=== PATIENT | male | born 1970 | race Caucasian/White ===

== ENCOUNTER 2018-08-18 05:49 | Outpatient (CLI) | payer BC, OTHER ==
[~2018-08-18] VITALS: Ht 182.9 cm; Wt 104.0 kg
[~2018-08-18 05:49] MED LIST: CLAR-19 PO; DIPH1TAB45 PO; LORA10TA2; NAPR250T34 PO; NF-ESOM40C; PRD50T PO
[2018-08-18] MEDS ORDERED: CETI1TAB61 PO (09:56)
[2018-08-18] MEDS ORDERED: MONT10TA21 PO (09:56)
[2018-08-18] MEDS ORDERED: TOPI50TA37 PO (09:56)
[2018-08-18] MEDS ORDERED: ALBU1.25 INH (09:56)
[2018-08-18] MEDS ORDERED: STEROID PACK PO (09:56)
[2018-08-18] MEDS ORDERED: RT-ALBUINH IH (09:58)
[2018-08-18 09:59] VITALS: BP 133/91
[2018-08-18 10:39] LABS: BASOPHILS % (AUTO) 0 % (0-10); EOSINOPHILS # (AUTO) 0.1 10^3/uL (0.0-0.3); EOSINOPHILS % (AUTO) 1 % (0-10); HEMATOCRIT 45 % (40-54); LYMPHOCYTES # (AUTO) 3.2 X 10^3 (1.0-4.0); LYMPHOCYTES % (AUTO) 24 % (12-44); MEAN CORPUSCULAR HEMOGLOBIN 29 PG (25-34); MEAN CORPUSCULAR HGB CONC 35 G/DL (32-36); MEAN CORPUSCULAR VOLUME 83 FL (80-99); MEAN PLATELET VOLUME 10.8 FL (7.4-10.4); MONOCYTES # (AUTO) 2.3 X 10^3 (0.0-1.0); MONOCYTES % (AUTO) 17 % (0-12); NEUTROPHILS # (AUTO) 8.1 X 10^3 (1.8-7.8); NEUTROPHILS % (AUTO) 59 % (42-75); PLATELET COUNT 231 10^3/uL (130-400); RED CELL DISTRIBUTION WIDTH 13.4 % (10.0-14.5); WHITE BLOOD COUNT 13.7 10^3/uL (4.3-11.0)
== END 2018-08-18 11:46 ==
LOC: PREOP 05:49
PROVIDERS: ATTEND Surgery
DX: Z01.812 Encounter for preprocedural laboratory examination (principal); Z11.2 Encounter for screening for other bacterial diseases; K40.90 Unilateral inguinal hernia, without obstruction or gangrene, not specified as recurrent
CPT/HCPCS: 36415; 85025; 87081

== ENCOUNTER 2018-08-20 10:58 | Day surgery (SDC) | payer BC, OTHER ==
[2018-08-20] VITALS (9 sets, daily range): BP systolic 123–142; BP diastolic 82–94
[~2018-08-20] VITALS: Ht 182.9 cm; Wt 104.0 kg
[~2018-08-20 10:58] MED LIST changes: +ALBU1.25 INH; +CETI1TAB61 PO; +MONT10TA21 PO; +RT-ALBUINH IH; +STEROID PACK PO; +TOPI50TA37 PO
[2018-08-20] MEDS ORDERED: LACTATED RINGERS 1,000 ML IV PRN ×2 (11:07)
--- OUTSIDE RECORDS SUMMARY | 2018-08-20 11:07 | XMS REPORT | Continuity of Care Document ---
Author Organization Unknown Address Unknown Allergies Active Description Code Type Severity Reaction Onset Reported/Identified Relationship to Patient Clinical Status Yes NKANo Known Allergies NKA Miscellaneous Allergy Mild N/A 01/28/2009 Yes No Known Drug Allergies [id number] Drug Allergy Unknown N/A 08/18/2018 Medications There is no data. Problems There is no data. Procedures There is no data. Results Test Result Range Other Culture - 09/27/16 15:30 PRELIM CULTURE RESULTS Abundant coag pos [id number] / ID to follow MEDIA PLATED Setup at 17:12 on 09/27/2016 Sensi - 09/27/16 15:30 FINAL CULTURE RESULTS Methicillin Resistant Staphylococcus aureus (Isolate 1) Ampicillin/Sulbactam <=8/4 Ampicillin <=2 Amoxicillin/K Clavulanate <=4/2 Ceftriaxone <=8 Clindamycin <=0.5 Cefoxitin Screen >4 Ciprofloxacin <=1 Daptomycin <=0.5 Erythromycin >4 Nitrofurantoin <=32 Gentamicin <=4 Gentamicin Synergy Screen N/R Inducible Clindamycin <=4/0.5 Levofloxacin <=1 Linezolid 2 Moxifloxacin <=0.5 Oxacillin >2 Penicillin 0.25 Rifampin <=1 Streptomycin Synergy N/R Synercid <=0.5 Trimethoprim/ Sulfamethoxazole <=0.5/9.5 Tetracycline <=4 Vancomycin 1 Methicillin resistant Staphylococcus aureus (MRSA) screening culture - 08/18/18 10:20 Methicillin resistant Staphylococcus aureus (MRSA) screening culture NEG NRG Complete blood count (CBC) with automated white blood cell (WBC) differential - 08/18/18 10:25 Blood leukocytes automated count (number/volume) 13.7 10*3/uL 4.3-11.0 Blood erythrocytes automated count (number/volume) 5.44 10*6/uL 4.35-5.85 Venous blood hemoglobin measurement (mass/volume) 16.0 g/dL 13.3-17.7 Blood hematocrit (volume fraction) 45 % 40-54 Automated erythrocyte mean corpuscular volume 83 [foz_us] 80-99 Automated erythrocyte mean corpuscular hemoglobin (mass per erythrocyte) 29 pg 25-34 Automated erythrocyte mean corpuscular hemoglobin concentration measurement (mass/volume) 35 g/dL 32-36 Automated erythrocyte distribution width ratio 13.4 % 10.0- 14.5 Automated blood platelet count (count/volume) 231 10*3/uL 130-400 Automated blood platelet mean volume measurement 10.8 [foz_us] 7.4-10.4 Automated blood neutrophils/100 leukocytes 59 % 42-75 Automated blood lymphocytes/100 leukocytes 24 % 12-44 Blood monocytes/100 leukocytes 17 % 0-12 Automated blood eosinophils/100 leukocytes 1 % 0-10 Automated blood basophils/100 leukocytes 0 % 0-10 Blood neutrophils automated count (number/volume) 8.1 10*3 1.8-7.8 Blood lymphocytes automated count (number/volume) 3.2 10*3 1.0-4.0 Blood monocytes automated count (number/volume) 2.3 10*3 0.0- 1.0 Automated eosinophil count 0.1 10*3/uL 0.0-0.3 Automated blood basophil count (count/volume) 0.0 10*3/uL 0.0-0.1 Encounters ACCT No. Visit Date/Time Discharge Status Pt. Type Provider Facility Loc./Unit Complaint [id number] 08/18/2018 05:49:00 08/18/2018 11:46:00 DIS Outpatient JULIANA HARRIS MD Via [facility] PREOP RIGHT INGUINAL HERNIA [id number] 09/14/2014 09:33:00 09/14/2014 23:59:59 CLS Outpatient MANUEL SCHAFER APRN [facility] LIZ [id number] 08/04/2012 08:53:00 08/04/2012 23:59:59 CLS Outpatient [id number] 08/20/2018 12:00:00 PEN Preadmit JULIANA HARRIS MD [facility] SDC RIGHT INGUINAL HERNIA [id number] 09/14/2014 09:34:20 ACT Document Registration [id number] 09/27/2016 16:49:00 09/27/2016 23:59:00 DIS Outpatient Jasmyn Sinclair
[2018-08-20] MEDS ORDERED: ceFAZolin 2 GM/50 ML NS 50 ML IV ONE (11:15)
--- NOTE | 2018-08-20 11:48 | Progress Note-Pre Operative ---
Pre-Operative Progress Note H&P Reviewed The H&P was reviewed, patient examined and no changes noted. Date Seen by Provider: Aug 20, 2018 Time Seen by Provider: 11:00 Date H&P Reviewed: Aug 20, 2018 Time H&P Reviewed: 11:00 Pre-Operative Diagnosis: reducible right ing hernia JULIANA HARRIS MD Aug 20, 2018 11:48
[2018-08-20] MEDS ORDERED: HYDR-34 PO (11:51)
--- NOTE | 2018-08-20 11:51 | Discharge Inst-Surgical ---
D/C Lap Instructions-KIMBERLY New, Converted, or Re-Newed RX: RX on Chart Follow Up Appt in 2 weeks Activity as tolerated No driving for 24 hours No driving while on pain medications Incentive Spirometry use every 2 hours while awake Regular Diet Symptoms to Report: Fever over 101 degree F, Nausea/Vomiting Infection Signs and Symptoms to report: Increased redness, Foul odor of wound, Increased drainage Bathing instructions: May shower Operative Area Clean/Dry; Keep incision clean/dry If any problems/questions: Contact your physician or go to Emergency Room JULIANA HARRIS MD Aug 20, 2018 11:51
[2018-08-20] MEDS ORDERED: ONDANSETRON 4 MG/2 ML (SDV) Z0FRAN IVP PRN ×2 (12:00→16:15)
[2018-08-20] MEDS ORDERED: morphine INJ 10 MG/ML 1ML (SYR OR VIAL) IVP PRN ×2 (12:00)
[2018-08-20] MEDS ORDERED: CATHETER FLUSH 10 ML SYR IV PRN (12:00)
[2018-08-20] MEDS ORDERED: oxyCODONE/APAP 5/325MG (PERCOCET 5) TABLET PO PRN (12:00)
[2018-08-20] MEDS ORDERED: ACETAMINOPHEN 325 MG TABLET PO PRN (12:00)
[2018-08-20] MEDS ORDERED: ROCURONIUM 10 MG/ML 5 ML SYRINGE IV ONE (13:32)
[2018-08-20] MEDS ORDERED: MIDAZOLAM 2 MG/2 ML (VERSED) VIAL ONE (13:32)
[2018-08-20] MEDS ORDERED: ONDANSETRON 4 MG/2 ML (SDV) Z0FRAN ONE (13:32)
[2018-08-20] MEDS ORDERED: DEXAMETHASONE 10 MG/ML (DECADRON) 1 ML VIAL ONE (13:32)
[2018-08-20] MEDS ORDERED: LIDOCAINE PF 2% 5 ML (XYLOCAINE) VIAL ONE (13:32)
[2018-08-20] MEDS ORDERED: proPOfol 200 MG/20 ML (DIPRIVAN) VIAL IV ONE (13:32)
[2018-08-20] MEDS ORDERED: fentaNYL INJECTION 100 MCG/2 ML AMP ONE (13:32)
[2018-08-20] MEDS ORDERED: GLYCOPYRROLATE 0.2 MG/ML (ROBINUL) 2 ML VIAL ONE ×2 (13:41→15:45)
[2018-08-20] MEDS ORDERED: SEVOFLURANE (ULTANE) 15 ML INHAL SOLN ONE (13:42)
[2018-08-20] MEDS ORDERED: BUP/EPI 0.5% 1:200,000 (SENSORCAINE) 30 ML VIAL ONE (13:45)
[2018-08-20] MEDS ORDERED: SUCCINYLCHOLINE INJ 100 MG/5 ML SYR ONE (14:42)
[2018-08-20] MEDS ORDERED: HYDROmorphone 2 MG/ML VIAL (DILAUDID) ONE (15:26)
[2018-08-20] MEDS ORDERED: NEOSTIGMINE 1 MG/ML 5 ML SYRINGE ONE (15:45)
--- NOTE | 2018-08-20 15:58 | Progress Note-Post Operative ---
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
[2018-08-20] MEDS ORDERED: HYDROmorphone 2 MG/ML VIAL (DILAUDID) IV ONE (16:15)
--- NOTE | 2018-08-20 16:39 | Anesthesia-General Post-Op ---
General Patient Condition Mental Status/LOC: Same as Preop Cardiovascular: Satisfactory Nausea/Vomiting: Absent Respiratory: Satisfactory Pain: Controlled Complications: Absent Post Op Complications Complications None Follow Up Care/Instructions Patient Instructions None needed. Anesthesia/Patient Condition Patient Condition Patient is doing well, no complaints, stable vital signs, no apparent adverse anesthesia problems. No complications reported per nursing. D/C home per [facility] Criteria: Yes BRODY ATWOOD CRNA Aug 20, 2018 16:39
--- NOTE | 2018-08-20 20:46 | OPERATIVE REPORT ---
DATE OF SERVICE: 08/20/2018 ATTENDING PRIMARY CARE PHYSICIAN: Dr. Dumont. PREOPERATIVE DIAGNOSIS: Symptomatic reducible right inguinal hernia. POSTOPERATIVE DIAGNOSIS: Symptomatic reducible right inguinal hernia. PROCEDURE: Laparoscopic right inguinal hernia repair with mesh. SURGEON: Juliana Harris MD CO FOUNDER AND CTO: Burt Francis APRN. ANESTHESIA: General endotracheal. ESTIMATED BLOOD LOSS: Minimal. FINDINGS: Right reducible indirect inguinal hernia. There is no recurrent left inguinal hernia component. DISPOSITION: The patient tolerated the procedure well. The patient is a 48-year-old male who was referred for pain and pressure along the right inguinal region. He reported he noticed this 6 weeks ago at work. He does do heavy lifting for his job on a regular basis and states that when this does flare up and he does rest, this does improve. He reports that the pain is severe enough, it does radiate towards the testicles as well as down his leg at times. He had a left inguinal hernia with similar symptoms approximately 20 years ago. The patient was brought to the operating room, laid supine on the table. After adequate IV pain and sedative medications and general endotracheal intubation, the abdomen was prepped and draped in standard surgical fashion. A 0.5% Marcaine with epinephrine was then used to anesthetize the overlying skin in the infraumbilical rim and a transverse skin incision made using a 15 blade. A sharp towel clamp was used to retract the abdominal wall anteriorly and a Veress needle inserted with a low opening pressure of 0 mmHg. The abdomen was then insufflated to 15 mmHg pressure. The Veress needle removed and a 10 mm Xcel trocar placed followed by a 10 mm 45-degree angle laparoscope visualizing the peritoneal cavity. A 4-quadrant abdominal exploration was performed. There was no recurrent left inguinal hernia. There was a right inguinal hernia identified, which was indirect type and small. The small bowel, omentum, colon appeared normal. Under direct visualization, we then proceeded to place bilateral 5 mm ports after the skin and peritoneal lining were anesthetized using 0.5% Marcaine with epinephrine and a transverse skin incision was made using 15-blade. The patient was then placed in reverse Trendelenburg position. A wedge of mesentery was then opened starting laterally towards the conjoint tendon inguinal ligament. We then proceeded medially to Judd's ligament. We then proceeded with our inferior dissection encompassing the entire hernia sac. The cord and its contents identified and spared throughout the process. Good hemostasis was also observed. A medium size 3DMax polypropylene mesh was then placed at the 10 mm port site and tacked to Judd's ligament medially with absorbable tacker and to conjoined tendon laterally. The peritoneal lining was then placed over the mesh and a few tacks placed to keep this in place. Good hemostasis was observed. The 10 mm port site fascia and peritoneum were then closed under direct visualization using a Hugo-Keysha device and 0 Vicryl suture. The abdomen was then desufflated and remaining ports removed. All skin incisions were closed using 4-0 Monocryl running subcuticular sutures. Wounds were then cleaned and covered with Dermabond. A supportive garment was also then placed. The patient tolerated the procedure well. We will start IV and oral pain medication as well as a clear liquid diet. Once he is tolerating clears, has good pain control with oral pain medication and is ambulating well, we will discharge him home. He will be instructed to do no heavy lifting or exertion for the next six weeks due to the type of work that he does for his job. If there is increased recurrence rate and we will have him wait the entire six weeks to allow for full incorporation of the mesh and normal collagen formation and tensile strength. Job ID: [id number] DocumentID: [id number] Dictated Date: 08/20/2018 16:06:58 On Air Personality Date: 08/20/2018 20:45:36 Dictated By: JULIANA HARRIS MD MTDD
== END 2018-08-20 17:37 | disposition home or self-care (01) ==
LOC: SDC 10:58
PROVIDERS: ATTEND Surgery
DX: K40.90 Unilateral inguinal hernia, without obstruction or gangrene, not specified as recurrent (principal); J45.909 Unspecified asthma, uncomplicated; F17.210 Nicotine dependence, cigarettes, uncomplicated; F17.220 Nicotine dependence, chewing tobacco, uncomplicated; Z79.899 Other long term (current) drug therapy
CPT/HCPCS: 94664

== ENCOUNTER 2019-08-15 11:57 | Emergency (ER) | payer SELFPAY ==
[~2019-08-15] VITALS: Ht 182 cm; Wt 118.0 kg
[~2019-08-15 11:57] MED LIST changes: +HYDR-34 PO
--- OUTSIDE RECORDS SUMMARY | 2019-08-15 12:12 | XMS REPORT | Continuity of Care Document ---
Author Organization Unknown Address Unknown Phone Unavailable Allergies Active Description Code Type Severity Reaction Onset Reported/Identified Relationship to Patient Clinical Status Yes NO KNOWN DRUG ALLERGIES UNKNOWN UNKNOWN Yes NKANo Known Allergies NKA Miscellaneous Allergy Mild N/A 01/28/2009 Yes No Known Drug Allergies [id number] Drug Allergy Unknown N/A 08/18/2018 Medications There is no data. Problems Date Dx Coded Attending Type Code Diagnosis Diagnosed By 02/05/2017 W 278.00 OBE SITY, UNSPECIFIED 02/05/2017 W 682.6 CELL ULITIS AND ABSCESS OF LEG, EXCEPT FOOT 02/05/2017 W E66.9 OBES ITY, UNSPECIFIED 02/05/2017 W L02.419 CU TANEOUS ABSCESS OF LIMB, UNSPECIFIED 02/05/2017 A V02.54 CAR RIER OR SUSPECTED CARRIER OF METHICILLIN RESISTANT STAPHYLOCOCCUS AUREUS 02/05/2017 A Z22.322 CA RRIER OR SUSPECTED CARRIER OF METHICILLIN RESISTANT STAPHYLOCOCCUS AUREUS 05/09/2017 W 477.8 LETY RGIC RHINITIS DUE TO OTHER ALLERGEN 05/09/2017 W J30.2 OTHE R SEASONAL ALLERGIC RHINITIS 04/06/2018 W 461.9 ACUT E SINUSITIS, UNSPECIFIED 04/06/2018 W 477.8 LETY RGIC RHINITIS DUE TO OTHER ALLERGEN 04/06/2018 W J01.90 ACU TE SINUSITIS, UNSPECIFIED 04/06/2018 W J30.2 OTHE R SEASONAL ALLERGIC RHINITIS 08/12/2018 W 112.3 CAND IDIASIS OF SKIN AND NAILS 08/12/2018 W 278.00 OBE SITY, UNSPECIFIED 08/12/2018 W 477 ALLERG IC RHINITIS 08/12/2018 W 550.90 UNI LATERAL OR UNSPECIFIED INGUINAL HERNIA, WITHOUT MENTION OF OBSTRUCTION OR GANGRENE (NOT SPECIFIED RECURRENT) 08/12/2018 W B37.2 CAND IDIASIS OF SKIN AND NAIL 08/12/2018 W E66.9 OBES ITY, UNSPECIFIED 08/12/2018 W J30.9 LETY RGIC RHINITIS, UNSPECIFIED 08/12/2018 W K40.90 UNI LATERAL INGUINAL HERNIA, WITHOUT OBSTRUCTION OR GANGRENE, NOT SPECIFIED RECURRENT 08/18/2018 JULIANA HARRIS MD Ot K40.90 UNIL INGUINAL HERNIA, W/O OBST OR GANGR, 08/18/2018 JULIANA HARRIS MD Ot Z01.81 2 ENCOUNTER FOR PREPROCEDURAL LABORATORY E 08/18/2018 JULIANA HARRIS MD Ot Z11.2 ENCOUNTER FOR SCREENING FOR OTHER BACTER 08/20/2018 JULIANA HARRIS MD Ot F17.21 0 NICOTINE DEPENDENCE, CIGARETTES, UNCOMPL 08/20/2018 JULIANA HARRIS MD Ot F17.22 0 NICOTINE DEPENDENCE, CHEWING TOBACCO, UN 08/20/2018 JULIANA HARRIS MD Ot J45.90 9 UNSPECIFIED ASTHMA, UNCOMPLICATED 08/20/2018 JULIANA HARRIS MD Ot K40.90 UNIL INGUINAL HERNIA, W/O OBST OR GANGR, 08/20/2018 JULIANA HARRIS MD Ot Z79.89 9 OTHER [facility] (CURRENT) DRUG THERAPY 08/20/2018 JULIANA HARRIS MD Ot K40.90 UNIL INGUINAL HERNIA, W/O OBST OR GANGR, 08/20/2018 JULIANA HARRIS MD Ot Z01.81 2 ENCOUNTER FOR PREPROCEDURAL LABORATORY E 08/20/2018 JULIANA HARRIS MD Ot Z11.2 ENCOUNTER FOR SCREENING FOR OTHER BACTER 08/20/2018 JULIANA HARRIS MD Ot K40.90 UNIL INGUINAL HERNIA, W/O OBST OR GANGR, 08/20/2018 JULIANA HARRIS MD Ot Z01.81 2 ENCOUNTER FOR PREPROCEDURAL LABORATORY E 08/20/2018 JULIANA HARRIS MD Ot Z11.2 ENCOUNTER FOR SCREENING FOR OTHER BACTER 08/26/2018 JULIANA HARRIS MD Ot F17.21 0 NICOTINE DEPENDENCE, CIGARETTES, UNCOMPL 08/26/2018 JULIANA HARRIS MD Ot F17.22 0 NICOTINE DEPENDENCE, CHEWING TOBACCO, UN 08/26/2018 JULIANA HARRIS MD Ot J45.90 9 UNSPECIFIED ASTHMA, UNCOMPLICATED 08/26/2018 JULIANA HARRIS MD Ot K40.90 UNIL INGUINAL HERNIA, W/O OBST OR GANGR, 08/26/2018 JULIANA HARRIS MD Ot Z79.89 9 OTHER [facility] (CURRENT) DRUG THERAPY 11/27/2018 Jasmyn Sinclair W 719.41 PAIN IN JOINT INVOLVING SHOULDER REGION 11/27/2018 Jasmyn Sinclair M25.512 PAIN IN LEFT SHOULDER 11/27/2018 Jasmyn Sinclair 719.41 PAIN IN JOINT INVOLVING SHOULDER REGION 11/27/2018 Jasmyn Sinclair M25.512 PAIN IN LEFT SHOULDER Procedures There is no data. Results Test Result Range Other Culture - 09/27/16 15:30 PRELIM CULTURE RESULTS Abundant coag pos sta [id number] / ID to follow MEDIA PLATED Setup [...] Tetracycline <=4 Vancomycin 1 Methicillin resistant Staphylococcus aur eus (MRSA) screening culture - 08/18/18 10:20 Methicillin resistant Staphylococcus aureus (MRSA) scr eening culture NEG NRG Complete blood count (CBC) with automate d white blood cell (WBC) differential - 08/18/18 10:25 Blood leukocytes automated count (number/volume) 13.7 10*3/uL 4.3-11.0 Blood erythrocytes automated count (number/volume) 5.44 10*6/uL 4.35-5.85 Venous blood hemoglobin measurement (mass/volume) 16.0 g/dL 13.3-17.7 Blood hematocrit (volume fraction) 45 % 40-54 Automated erythrocyte mean corpuscular volume 83 [ foz_us] 80-99 Automated erythrocyte mean corpuscular h emoglobin (mass per erythrocyte) 29 pg 25-34 Automated erythrocyte mean corpuscular h emoglobin concentration measurement (mass/volume) 35 g/dL 32-36 Automated erythrocyte distribution width ratio 13. 4 % 10.0- 14.5 Automated blood platelet count [...] 10*3 1.0-4.0 Blood monocytes automated count (number/volume) 2. 3 10*3 0.0-1.0 Automated eosinophil count 0.1 10*3/uL 0 .0-0.3 Automated blood basophil count (count/volume) 0.0 10*3/uL 0.0-0.1 Sed Rate - 11/27/18 11:52 Sed Rate 2 mm/hr 0-9 CYNTHIA w/Reflex - 11/27/18 11:52 CYNTHIA DIRECT NEGATIVE NEGATIVE CYNTHIA w/Reflex - 11/27/18 11:52 CYNTHIA Direct Negative Negative Encounters ACCT No. Visit Date/Time Discharge Status Pt. Type Provider Facility Loc./Unit Complaint [id number] 04/02/2019 14:40:00 04/02/2019 23:59 :00 DIS Outpatient Jasmyn Sinclair [id number] 11/27/2018 11:32:00 11/27/2018 23:59: 00 DIS Outpatient BUBBA MORRIS [id number] 11/27/2018 10:00:00 11/27/2018 23:59: 00 DIS Outpatient Jasmyn Sinclair [id number] 09/27/2016 16:49:00 09/27/2016 23:59: 00 DIS Outpatient Jasmyn Sinclair [id number] 08/12/2018 08:20:00 Document Registration [id number] 04/06/2018 14:00:00 Document Registration [id number] 05/09/2017 08:23:00 Document Registration [id number] 02/05/2017 11:00:00 Document Registration [id number] 11/30/2018 12:09:00 Document Registration [id number] 08/20/2018 10:58:00 019 17:37:00 DIS Outpatient JULIANA HARRIS MD [facility] RIGHT INGUINAL HERNIA [id number] 08/18/2018 05:49:00 11:46:00 DIS Outpatient JULIANA HARRIS MD [facility] PREOP RIGHT INGUINAL HERNIA [id number] 09/14/2014 09:33:00 015 23:59:59 CLS Outpatient MANUEL SCHAFER APRN [facility] [id number] 08/04/2012 08:53:00 013 23:59:59 CLS Outpatient
[2019-08-15] MEDS ORDERED: IBUPROFEN 800 MG (MOTRIN) TAB PO STA (12:32)
[2019-08-15] MEDS ORDERED: CYCLOBENZAPRINE 10 MG (FLEXERIL) TAB PO STA (12:32)
--- NOTE | 2019-08-15 12:40 | ED Upper Extremity ---
General Chief Complaint: Upper Extremity Stated Complaint: L SHOULDER PAIN Nursing Triage Note: PT CO OF L SHOULDER PAIN, DENIES INJURY, HOLDS OVER HEAD TO KEEP FROM HURTING Nursing Sepsis Screen: No Definite Risk History of Present Illness Date Seen by Provider: Aug 15, 2019 Time Seen by Provider: 12:25 Initial Comments 49-year-old male presents for left shoulder pain. He had pain that began this morning while in the shower. 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 He denies a specific injury to his shoulder. He tried Tylenol with no resolution in symptoms. He has been seen previously by orthopedics for left shoulder and neck issues but was unable to obtain an MRI secondary to claustrophobia from his asthma. He denies any left chest pain. His left shoulder feels best when keeping it elevated and his hand resting on his head. Onset: this morning Pain/Injury Location: left shoulder Method of Injury: unknown Modifying Factors: Improves With Rest Allergies and Home Medications Allergies Coded Allergies: No Known Drug Allergies (Unverified , 08/18/18) Home Medications Cetirizine HCl/Pseudoephedrine 1 Each Tab.er.12h, 1 EACH PO BIDPC, (Reported) Cyclobenzaprine HCl 10 Mg Tablet, 10 MG PO Q8H PRN for SPASMS Prescribed by: JYOTSNA MAGALLON on 08/15/19 1302 Montelukast Sodium 10 Mg Tablet, 10 MG PO DAILY, (Reported) Patient Home Medication List Home Medication List Reviewed: Yes Review of Systems Constitutional: no symptoms reported, see HPI Musculoskeletal: see HPI, joint pain (left shoulder and trapezius muscle) All Other Systems Reviewed Negative Unless Noted: Yes Past Mqwlovz-Jpldoo-Lqimoi Hx Past Med/Social Hx: Reviewed Nursing Past Med/Soc Hx Patient Social History Alcohol Use: Denies Use Recreational Drug Use: No Smoking Status: Never a Smoker Type Used: Smokeless Tobacco 2nd Hand Smoke Exposure: No Recent Foreign Travel: No Contact w/Someone Who Travel: No Recent Infectious Disease Expo: No Recent Hopitalizations: No Physical Abuse: No Sexual Abuse: No Seasonal Allergies Seasonal Allergies: Yes Past Medical History Surgeries: Yes (L INGUINAL HERNIA) Respiratory: Yes Asthma Cardiac: No Neurological: No Sexually Transmitted Disease: No HIV/AIDS: No Genitourinary: No Gastrointestinal: No Musculoskeletal: No Endocrine: No HEENT: Yes (GLASSES) Loss of Vision: Bilateral Hearing Impairment: Denies Cancer: No Psychosocial: No Integumentary: No Blood Disorders: No Adverse Reaction/Blood Tranf: No (N/A) Physical Exam Vital Signs Vital Signs - First Documented 08/15/19 12:18 Temp 36.6 Pulse 102 Resp 18 B/P (MAP) 121/90 (100) Pulse Ox 98 Capillary Refill : Less Than 3 Seconds Height, Weight, BMI Height: 6'0.00" Weight: 229lbs. 5.0oz. 104.772334og; 35.00 BMI Method:Stated General Appearance: WD/WN, no apparent distress Neck: non-tender, full range of motion, tender lateral (left trapezius) Cardiovascular: normal peripheral pulses, regular rate, rhythm Respiratory: chest non-tender, lungs clear, normal breath sounds, no respi ratory distress Shoulder: normal inspection, normal ROM; No asymmetry; bone tenderness; No limited ROM, No pain; soft tissue tenderness (tenderness posterios Left shoulder, into Trapezius. Resisted Flex/Ext/Ext rotation V/V. Neurovas status intact, bilat UEs. ); No swelling Elbow/Forearm: normal inspection, non-tender, no evidence of injury, normal ROM, Left Wrist: Yes normal inspection, Yes non-tender, Yes no evidence of injury, Yes normal ROM Hand: normal inspection, non-tender, no evidence of injury, normal ROM, Left Neurologic/Tendon: normal sensation, normal motor functions, normal tendon functions Neurologic/Psychiatric: no motor/sensory deficits, alert, normal mood/affect, oriented x 3 Skin: normal color, warm/dry Progress/Results/Core Measures Results/Orders My Orders Orders - JYOTSNA MAGALLON Shoulder, Left, 3 Views (08/15/19 12:27) Ibuprofen Tablet (Motrin Tablet) (08/15/19 12:32) Cyclobenzaprine Tablet (Flexeril Tablet) (08/15/19 12:32) Vital Signs/I&O 08/15/19 08/15/19 12:18 13:18 Temp 36.6 36.6 Pulse 102 102 Resp 18 18 B/P (MAP) 121/90 (100) 121/90 (100) Pulse Ox 98 98 Blood Pressure Mean: 100 Diagnostic Imaging Diagonstic Imaging: Xray Plain Films/CT/US/NM/MRI: other (left shoulder) Comments NAME: MEE [facility] REC#: [id number] PT STATUS: REG ER : 1970 PHYSICIAN: JYOTSNA MAGALLON ADMIT DATE: 08/15/19/ER Draft Date of Exam:08/15/19 SHOULDER, LEFT, 3 VIEWS EXAMINATION: Shoulder radiographs, 3 views. COMPARISON: None. HISTORY: 39-year-old male, left shoulder pain. FINDINGS: The acromioclavicular joint is normally aligned. There are no acromioclavicular degenerative changes. Humeral head is unremarkable in alignment relative to the glenoid. The glenohumeral joint space is well-maintained. There is no identified acute fracture. There is no identified bone lesion. IMPRESSION: Unremarkable left shoulder radiographs. Dictated on workstation # [id number] Dict: 08/15/19 1250 Trans: 08/15/19 1256 CV [id number] Interpreted by: MACI VALENZUELA MD Electronically signed by: Reviewed: Reviewed by Me Departure Impression Primary Impression: Left shoulder pain Qualified Codes: M25.512 - Pain in left shoulder Additional Impression: Strain of left trapezius muscle Qualified Codes: S46.812A - Strain of other muscles, fascia and tendons at shoulder and upper arm level, left arm, initial encounter Disposition: 01 HOME, SELF-CARE Condition: Improved Departure-Patient Inst. Decision time for Depature: 12:50 Referrals: BUBBA MORRIS MD (PCP/Family) Primary Care Physician Patient Instructions: Shoulder Pain (DC), Cervical Muscle Strain Add. Discharge Instructions: Alternate heat and ice to your left shoulder and neck for 20 minutes every 2 hours as needed. Alternate between Tylenol 650 mg and ibuprofen 600 mg every 4 hours for pain. Use a muscle relaxant as prescribed. Follow-up with your primary care provider or orthopedics if your symptoms are not improving or worsen. Limit lifting with her left upper extremity as pain improves, slowly resume normal activity. Return to the emergency department for new, urgent health care needs. All discharge instructions reviewed with patient and/or family. Voiced understanding. Scripts Cyclobenzaprine HCl (Cyclobenzaprine HCl) 10 Mg Tablet 10 MG PO Q8H PRN for SPASMS, #15 TAB 0 Refills Prov: JYOTSNA MAGALLON 08/15/19 JYOTSNA MAGALLON Aug 15, 2019 12:40
--- NOTE | 2019-08-15 12:58 | Diagnostic Imaging Report ---
EXAMINATION: Shoulder radiographs, 3 views. COMPARISON: None. HISTORY: 39-year-old male, left shoulder pain. FINDINGS: The acromioclavicular joint is normally aligned. There are no acromioclavicular degenerative changes. Humeral head is unremarkable in alignment relative to the glenoid. The glenohumeral joint space is well-maintained. There is no identified acute fracture. There is no identified bone lesion. IMPRESSION: Unremarkable left shoulder radiographs. Dictated by: Dictated on workstation # [id number]
[2019-08-15] MEDS ORDERED: CYCL10TA9 PO (13:02)
[2019-08-15 13:18] VITALS: BP 121/90
== END 2019-08-15 13:17 | disposition home or self-care (01) ==
LOC: EDUNIT# 11:57 → ER 11:57
DX: S29.012A Strain of muscle and tendon of back wall of thorax, initial encounter (principal); J45.909 Unspecified asthma, uncomplicated; X50.0XXA Overexertion from strenuous movement or load, initial encounter
CPT/HCPCS: 73030